=== PATIENT | female | born 1995 | race Caucasian/White ===

== ENCOUNTER 2019-05-20 21:30 | Emergency (ER) | payer MEDICAID ==
[~2019-05-20] VITALS: Ht 160 cm; Wt 149.7 kg
[2019-05-20 21:56] VITALS: Ht 160 cm; Wt 149.7 kg
[2019-05-20 22:53] LABS: APPEARANCE CLEAR (CLEAR); BILIRUBIN NEGATIVE (NEGATIVE); COLOR YELLOW (YELLOW); GLUCOSE NEGATIVE (NEGATIVE); KETONE NEGATIVE (NEGATIVE); NITRITE NEGATIVE (NEGATIVE); PROTEIN NEGATIVE (NEGATIVE); SPECIFIC GRAVITY 1.015 (1.005-1.020); UROBILINOGEN NORMAL (NORMAL)
[2019-05-20 22:55] LABS: BACTERIA FEW /hpf (NEGATIVE); EPITHELIAL CELLS 0-5 /hpf (0-5); RED CELLS - URINE 0-5 /hpf (0-5); WHITE CELLS - URINE 0-5 /hpf (NEGATIVE)
[2019-05-20 23:06] LABS: BASOPHILS 0.2 % (0-2); EOSINOPHILS 2.2 % (0-7); HEMATOCRIT 37.3 % (36.0-48.0); HEMOGLOBIN 11.8 g/dL (12-16); IMMATURE GRANULOCYTES 0.3 % (0-5); LYMPHOCYTES 27.3 % (15-50); MCH 27.4 pg (26.0-34.0); MCHC 31.6 g/dL (31.0-37.0); MCV 86.5 fL (80.0-100.0); MEAN PLATELET VOLUME 8.5 fL (7.4-10.4); MONOCYTES 4.2 % (2-11); NEUTROPHILS 65.8 % (40-80); PLATELET COUNT 347 10x3/uL (130-400); RBC 4.31 10x6/uL (4.00-5.40); RDW 14.1 % (11.5-14.5); WBC 11.3 10x3/uL (4.8-10.8)
[2019-05-20 23:20] LABS: CALC OSMOLALITY 273 mosm/kg (275-300); CALCIUM 8.4 mg/dL (8.5-10.1); CARBON DIOXIDE 25.5 mmol/L (21.0-32.0); CHLORIDE - SERUM 102 mmol/L (98-107); CREATININE - SERUM 0.6 mg/dL (0.6-1.3); GLUCOSE 88 mg/dL (74-106); HCG SERUM POSITIVE (NEGATIVE); POTASSIUM - SERUM 3.7 mmol/L (3.5-5.1); SODIUM 137 mmol/L (136-145); UREA NITROGEN 15 mg/dL (7-18); eGFR NON AFRICAN AMERICAN > 90 mL/min (90-120)
[2019-05-20 23:50] LABS: ALBUMIN 3.2 g/dL (3.4-5.0); ALKALINE PHOSPHATASE 37 U/L (46-116); ALT (SGPT) 26 U/L (10-68); BILIRUBIN - TOTAL 0.12 mg/dL (0.2-1.3); HCG - QUANTITATIVE (MATERNAL) 16297 mIU/mL; PROTEIN - SERUM 7.1 g/dL (6.4-8.2)
[2019-05-21 01:58] VITALS: BP 129/79
== END 2019-05-21 01:59 | disposition home or self-care (01) ==
LOC: D.ER 21:30
PROVIDERS: Emergency Medicine
DX: O20.9 Hemorrhage in early pregnancy, unspecified (principal); Z3A.08 8 weeks gestation of pregnancy

== ENCOUNTER 2019-08-05 09:46 | Inpatient (IN) | payer MEDICAID ==
[2019-08-05] VITALS (9 sets, daily range): BP systolic 98–125; BP diastolic 45–77
--- NOTE | ~2019-08-05 | OP ---
PATIENT NAME: MIAN MELENDEZ MEDICAL RECORD: [id number] LOCATION:[id number] ADMISSION DATE:08/05/19 SURGEON: SHERYL CORTEZ DO DATE OF OPERATION: 08/05/2019 PREOPERATIVE DIAGNOSIS: Retained placenta. POSTOPERATIVE DIAGNOSIS: Retained placenta. PRIMARY SURGEON: Sheryl Cortez DO ANESTHESIA: General ET tube. PROCEDURE: Suction dilation and curettage. FINDINGS: Normal appearing external genitalia, normal appearing vaginal vault. Cervix 3 cm dilated. SPECIMENS: Placenta. ESTIMATED BLOOD LOSS: 1500 cc. IV FLUIDS: 1200 IV fluid, plus Pitocin and 1 unit of PRBCs. URINE OUTPUT: 200 cc clear urine. COMPLICATIONS: After the placenta was removed, the patient noted to have uterine atony and hemorrhage, given 20 units of Pitocin and 1000 liters IV fluids, 0.25 mg Hemabate IM, and 0.2 mg Methergine IM. At that time, the bleeding improved and the uterus had good tone. One unit of PRBCs started in the OR due to hemorrhage. DESCRIPTION ON PROCEDURE: The risks, benefits, alternatives, and indications of the procedure were discussed with the patient. She was voiced understanding of the procedure and signed the consent. She was taken to the OR where general anesthesia was administered and found to be adequate. She was placed in the dorsal lithotomy position. She was prepped and draped in the normal sterile fashion. As the patient was already 3 cm dilated, manual removal of the placenta was performed. After the placenta was removed from the uterus, a gentle sharp curettage was performed; however, uterine atony was noted and the patient was given the aforementioned medications. A suction curette was introduced into the uterus and any other retained products of conception were removed with a suction curette. In a clockwise fashion, the suction curette was then removed. The patient still had mild uterine atony and so a bimanual compression of the uterus was performed. At that time, good uterine tone was noted. All instruments were removed from the vagina and hemostasis was noted to be adequate. All lap sponge and instruments were correct times 2. One unit of PRBCs was started in the OR due to uterine hemorrhage. The patient was awakened and taken to the recovery room in stable condition. TRANSINT:[id number] Voice Confirmation ID: [id number] DOCUMENT ID: [id number] OPERATIVE REPORT [id number] MIAN MELENDEZ REBECCA DO CC: [id number] DICTATION DATE: 08/09/19 1639 IT DATA ARCHITECT: 08/09/19 1716 DIS IN 08/06/19 [place] [id number] [place] [id number]
[2019-08-05 11:00] LABS: HEMATOCRIT 36.1 % (36.0-48.0); HEMOGLOBIN 11.3 g/dL (12-16); MCH 27.8 pg (26.0-34.0); MCHC 31.3 g/dL (31.0-37.0); MCV 88.7 fL (80.0-100.0); MEAN PLATELET VOLUME 8.7 fL (7.4-10.4); RBC 4.07 10x6/uL (4.00-5.40); RDW 14.2 % (11.5-14.5); WBC 17.3 10x3/uL (4.8-10.8)
--- NOTE | 2019-08-05 13:14 | NUR ---
TO ROOM 1273 VIA BED FROM RR. PT AWAKE AND VERBAL RESPONSES APPRO TO QUESTIONS. CO FEELING PRESSURE AND THAT FEELS LIKE SHE NEEDS TO VOID. SMALL BLOOD NOTED ON PAD UNDERNEATH PT- PADS ADJ AND REPLACED. ON BEDPAN- STATES FEELS LIKE NEEDS TO VOID AND HAVE BM BUT UNABLE TO DO SO. IV IN LT ACS CHANGED TO SALINE LOCK AND IV OF PITOCIN 20UNITS IN 1000CC NS CONNECTED TO PUMP AND INFUSING AT 125CC/HR. SCD'S ON AND CONNECTED TO PUMP.
--- NOTE | 2019-08-05 13:45 | NUR ---
REQUSTING SOMETHING TO DRINK BUT ALSO CO NAUSEA. ICE CHIPS GIVEN.
--- NOTE | 2019-08-05 13:45 | NUR ---
DISCUSSED WITH PT MOVING TO DIFFERENT ROOM OFF OF L&D UNIT, PT DECLINED AND REQUESTS TO STAY ON UNIT, STATES THAT SHE FEELS SHE IS RECEIVING GREAT CARE AND IS COMFORTABLE WITH STAFF ON UNIT CARING FOR HER.
--- NOTE | 2019-08-05 14:06 | NUR ---
TOLERATING ICE CHIPS. SITTING UP IN BED TALKING WITH VISITOR.
--- NOTE | 2019-08-05 15:12 | NUR ---
UP TO BATHROOM- VOIDED 300CC INTO CONTAINER. PERICARE DONE USING BETADINE AND WARM WATER. PAD PLACED.
--- NOTE | 2019-08-05 15:20 | NUR ---
DIPOSAL OF FACILITY VS HOME DISCUSSED WITH PT, REQUEST TO DISCUSS WITH SIGNIFICANT OTHER/FOB. RN INFORMED PT THAT ANY ADDITIONAL QUESTIONS OR INFO NEEDED COULD BE OBTAINED PER PT REQUEST AND THAT RN COULD ASSIST WITH MAKING CALLS TO HOMES PRN, VERBALIZES UNDERSTANDING AND DENIES QUESTIONS AT THIS TIME. PT REPORTS THAT FOB/SIGNIFICANT OTHER LEFT UNIT TO GO HOME TO GET BELONGINGS BUT IS PLANNING TO RETURN TO UNIT AT A LATER TIME. PT REQUESTS FETUS FOR BONDING TIME AT THIS TIME, FETUS BROUGHT TO ROOM PER REQUEST. ROOM TEMP DECREASED. BED IN LOW POSITION WITH SRUP X2. CALL LIGHT AND PHONE WITHIN PT REACH. WILL CONTINUE TO MONITOR.
--- NOTE | 2019-08-05 16:08 | NUR ---
pt returns infant. nicole and wanda given per request.
[2019-08-05 16:37] LABS: BASOPHILS 0.1 % (0-2); EOSINOPHILS 0.1 % (0-7); HEMATOCRIT 35.2 % (36.0-48.0); HEMOGLOBIN 11.1 g/dL (12-16); IMMATURE GRANULOCYTES 0.4 % (0-5); LYMPHOCYTES 5.8 % (15-50); MCH 27.8 pg (26.0-34.0); MCHC 31.5 g/dL (31.0-37.0); MCV 88.2 fL (80.0-100.0); MEAN PLATELET VOLUME 8.7 fL (7.4-10.4); NEUTROPHILS 92.6 % (40-80); PLATELET COUNT 293 10x3/uL (130-400); RBC 3.99 10x6/uL (4.00-5.40); RDW 14.5 % (11.5-14.5); WBC 17.1 10x3/uL (4.8-10.8)
--- NOTE | 2019-08-05 16:52 | NUR ---
TOLERATING CLEAR LIQUIDS WELL. DRANK 550CC ON TRAY. UP TO BATHROOM -VOIDED 500CC URINE. SCANT VAG BLEEDING NOTED. VICKEY CARE DONE. RETURNS TO BED. CO BEING HOT AND REQUESTING FAN.
--- NOTE | 2019-08-05 17:09 | NUR ---
H&H CALLED TO DR. CORTEZ FROM 1631.
--- NOTE | 2019-08-05 17:55 | NUR ---
VOIDED 200CC URINE- TOLERATING AMBULATION.
--- NOTE | 2019-08-05 18:58 | NUR ---
NEW POLICY ON STILLBIRTH REPORTING REVIEWED. COMMISSARY SUPERINTENDENT ANSWERING SERVICE CONTACTED AND WILL NOTIFY INJECTION MOLDING MACHINE OPERATOR COMMISSARY SUPERINTENDENT TO CALL UNIT.
--- NOTE | 2019-08-05 19:40 | NUR ---
RECEIVED SHIFT REPORT FROM JAKY FONTANEZ RN
--- NOTE | 2019-08-05 19:55 | NUR ---
ASSESSMENT PER FLOW SHEET, VS OBTAINED, SALINE LOCK IN LEFT AC INTACT WITH NO REDNESS OR EDEMA, IV IN RIGHT HAND INTACT WITH NO REDNESS OR EDEMA INFUSING VIA PUMP NS WITH PITOCIN AT 125 ML/HR, LITE BLEEDING NOTED WITH NO CLOTS, PT UP TO BR, VOIDED 200 MLS OF LIGHTLY BLOOD TINGED URINE BY SELF WITH NO DIFFICULTY, S/O ASSISTED PT IN BR, PT REPORTS FLATUS, PT REQUESTING REG DIET AND SHOWER, INFORMED PT THAT I WILL NOTIFY DR CORTEZ, PT REQUESTED AND SERVED L[place] SODA, BED IN LOW POSITION, SIDE RAILS X 2, CALL LIGHT IN REACH
--- NOTE | 2019-08-05 20:20 | NUR ---
PT SITTING UP IN BED, PT INST ON AND VERBALIZES UNDERSTANDING OF FILLING OUT DEMISE PAPERWORK, PT ALSO REQUESTS TO TALK TO DR CORTEZ, INFORMED PT THAT SHE IS SUPPOSE TO BE HERE SHORTLY AND I WILL HAVE HER COME IN AND TALK TO HER, PT INST TO USE CALL LIGHT FOR ANY ASSISTANCE, FOB AT BEDSIDE
--- NOTE | 2019-08-05 20:35 | NUR ---
NOTIFIED DR CORTEZ REGARDING D/C NS WITH PITOCIN, SALINE LOCK IV, REG DIET, SHOWER, AND THAT PT WOULD LIKE TO TALK TO HER WHEN SHE GETS HERE, ORDERS TO D/C NS WITH PITOCIN, SALINE LOCK IV, MAY HAVE REG DIET, AND CHANGE IM METHERGINE TO PO METHERGINE, AND THAT SHE WILL TALK TO PT WHEN SHE GETS HERE
--- NOTE | 2019-08-05 21:13 | NUR ---
PT SITTING UP IN BED, FOB AT BEDSIDE, SANDWICH TRAY SERVED WITH FRESH LEMON [place] SODA, ADM FLAGYL IVPB AND MORPHINE SIVP, DILUTED IN 5MLS OF NS, PER MD ORDERS, SEE EMAR, PT DENIES FURTHER NEEDS
--- NOTE | 2019-08-05 21:27 | NUR ---
DR CORTEZ ON UNIT, REPORT OF NO PO METHERGINE IN HOSPITAL, ORDERS TO D/C PO METHERGINE AND CHANGE TO METHERGINE 0.2MG IM [id number] FOR INCREASED BLEEDING, AND D/C MORPHINE IV, ORDERS READ BACK AND VERIFIED
--- NOTE | 2019-08-05 21:40 | NUR ---
THIS RN AND DR CORTEZ TO PT'S ROOM AT THIS TIME TO SPEAK WITH PT PER REQUEST OF PT. PT CURRENTLY SITTING UP IN BED EATING A SANDWICH. PT CURRENTLY APPARENTLY COPING WITH LOSS OF AT THIS TIME. DISCUSSING LOSS OF BLOOD WITH PT AND TONIA. THIS RN AND DR CORTEZ ASSURING PT THAT HER QUESTIONS CAN BE ANSWERED AND ASSISTANCE PROVIDED FOR NEEDS.
--- NOTE | 2019-08-05 22:45 | NUR ---
PT TRANSFERRED VIA AMB TO ROOM 1257 WITH ALL BELONGINGS, FOB AT SIDE, PT ORIENTED TO ROOM, BED IN LOW POSITION, SIDE RAILS X 2
--- NOTE | 2019-08-05 23:00 | NUR ---
PT UP TO BR WITH ASSISTANCE, VOIDED 400 MLS OF LIGHTLY BLOOD TINGED URINE BY SELF WITH NO DIFFICULTY, LITE BLEEDING NOTED WITH NO CLOTS ON VICKEY PAD, PT REQUESTED AND PROVIDED BABY WIPES, PT INST NOT TO FLUSH, PT VERBALIZES UNDERSTANDING, FOB IN BR TO ASSIST PT, PT INST TO USE CALL LIGHT FOR ANY ASSISTANCE
--- NOTE | 2019-08-05 23:35 | NUR ---
PT AWAKE, WATCHING TV, VS OBTAINED, PT RATES PAIN 2-3/10, PT INFORMED THAT I WILL ADM TORADOL AT 0145, PT VERBALIZES UNDERSTANDING, IV CONVERTED TO SALINE LOCK, FLUSHED WITH NO DIFFICULTY, SWAB CAPS IN PLACED, PT REQUESTED AND SERVED LEMON [place] SODA, BOTTLED WATER, AND ICE CHIPS, PT DENIES FURTHER NEEDS, FOB ASLEEP ON COUCH
--- NOTE | 2019-08-06 01:39 | NUR ---
PT AWAKE, SALINE LOCK FLUSHED, ADM TORADOL SIVP PER MD ORDERS, SALINE LOCK FLUSHED, PT DENIES NEEDS, FOB ASLEEP ON COUCH
--- NOTE | 2019-08-06 02:21 | NUR ---
REPORT TO BEATRIZ DUARTE RN
--- NOTE | 2019-08-06 03:00 | NUR ---
ROUNDS MADE FOR PAIN REASSESSMENT. PT CURRENTLY SLEEPING ON SOFA WITH SIG OTHER. RESP EVEN. SNORING AUDIBLE. PAIN ASSESSED. USING FACE SCALE. 0/10. BOTH LEFT UNDISTURBED AT THIS TIME.
--- NOTE | 2019-08-06 04:30 | NUR ---
THIS RN TO BEDSIDE FOR VITAL SIGNS, PAIN AND NEEDS ASSESSMENT. PT CURRENTLY SITTING UP IN BED WATCHING TV. DENIES PAIN. HAS REQUEST FOR SOMETHING TO EAT AND DRINK. WILL PROVIDE AFTER 3RD DOSE ANTIBIOTICS UP TO INFUSE. NS IV LINE CONNECTED TO RT HAND PIV. SITE WNL AND PATENT. MAIN LINE SET TO INFUSE AT 100ML/HR. FLAYGL 500MG UP TO INFUSE VIA IVPB. VITAL SIGNS STABLE. SEE FLOWSHEET. PT UP TO BR. SANDWICH TRAY, SPRITE AND 2 CUPS OF ICE SERVED PER PT REQUEST. NO FURTHER NEEDS VOICED AT THIS TIME. BED LOW, SIDE RAILS UP X 2. CALL LIGHT AT PT'S SIDE. SIG OTHER SLEEPING ON SOFA.
[2019-08-06 04:44] VITALS: BP 98/39
--- NOTE | 2019-08-06 06:00 | NUR ---
THIS RN TO PT'S ROOM TO DISCONNECT IV LINE. ANTIBIOTICS COMPETED AT THIS TIME. INFANT ID BANDS #[id number] PLACED ON MOM AND DAD. PT UP TO BR AT THIS TIME. NO NEEDS VOICED.
[2019-08-06 06:38] LABS: BASOPHILS 0.1 % (0-2); EOSINOPHILS 0.5 % (0-7); HEMATOCRIT 29.1 % (36.0-48.0); IMMATURE GRANULOCYTES 0.6 % (0-5); LYMPHOCYTES 15.6 % (15-50); MCH 27.4 pg (26.0-34.0); MCHC 30.9 g/dL (31.0-37.0); MCV 88.7 fL (80.0-100.0); MEAN PLATELET VOLUME 8.9 fL (7.4-10.4); MONOCYTES 4.7 % (2-11); NEUTROPHILS 78.5 % (40-80); PLATELET COUNT 292 10x3/uL (130-400); RBC 3.28 10x6/uL (4.00-5.40); RDW 14.7 % (11.5-14.5); WBC 15.5 10x3/uL (4.8-10.8)
--- NOTE | 2019-08-06 07:00 | NUR ---
THIS RN AND Deisy ARMENDARIZARL TO BEDSIDE FOR BEDSIDE SHIFT REPORT. PT SLEEPING ON SOFA W/SIG OTHER. BOTH LEFT UNDISTURBED. NO BEDSIDE SHIFT REPORT GIVEN.
--- NOTE | 2019-08-06 07:15 | NUR ---
TO BEDSIDE FOR REPORT. PT AND SIGNIFICANT OTHER RESTING WITH EYES CLOSED. PT RESP REGULAR AND UNLABORED, NO S/S OF DISTRESS NOTED. PT NOT DISTURBED TO ALLOW FOR REST. BED IN LOW POSITION WITH SRUP X2. CALL LIGHT AND PHONE WITHIN REACH. WILL CONTINUE TO MONITOR.
--- NOTE | 2019-08-06 07:30 | NUR ---
ATTEMPTED TO CONTACT PATHOLOGY REGARDING COLLECTING PATH, PER TECH MD WILL BE IN AT LATER TIME.
[2019-08-06 08:14] VITALS: BP 116/68
--- NOTE | 2019-08-06 08:14 | NUR ---
SHIFT ASSESSMENT COMPLETED PER FLOWSHEET. BOTH PIV'S REMOVED WITH TIPS INTACT AND BANDAID PLACED. POC DISCUSSED WITH PT AND SIGNIFICANT OTHER. PT REPORTS THAT SHE AND S/O HAVE OPTED TO HAVE [facility] CREMATED FOLLOWING NEEDED PATHOLOGIES. PT STATES THAT SHE WOULD LIKE TO D/C HOME TONI. REQUESTS RN CONTACT [facility]ARN[facility] NUNE[facility] AND [facility] REGARDING COST OF SERVICES FOR CREMATION. WILL FOLLOW UP WITH PT FOLLOWING PHONE CALLS TO HOMES.
--- NOTE | 2019-08-06 10:48 | NUR ---
ELICIA, IN PATH CONTACTED REGARDING TISSUE COLLECTION FROM [facility], EXT TO DR. FINE GIVEN. DR. 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 DR. CORTEZ NOTIFIED.
--- NOTE | 2019-08-06 11:20 | NUR ---
PT NOTIFIED THAT TISSUE WAS BEING COLLECTED AND THAT MARNIE NUNEZ AND [facility] PURCELL HAD BEEN CONTACTED AND BOTH REPORT THAT CREMATION SERVICES WERE FREE OF CHARGE. [facility] [place] [facility], CALL MADE AND PT NOTIFIED THAT THIS HOME CHARGES FOR URN BUT CREMATION WILL BE NO CHARGE. PER PT [facility]. PT REQUEST TO SEE [facility] FOR BONDING WHEN BACK FROM PATH LAB.
--- NOTE | 2019-08-06 11:40 | NUR ---
THIS RN TO ROOM PER PT REQUEST FOR DRINK AND SNACK. SNACKS, ICE WATER, AND SPRITE PROVIDED. RIGHT HAND PIV REMOVED NO LONGER INDICATED. PRESSURE HELD AND BANDAID APPLIED. PT DENIES FURTHER NEEDS AT THIS TIME. SRUx2, CL IN REACH.
--- NOTE | 2019-08-06 12:10 | NUR ---
FETUS BACK TO UNIT FROM PATH AND TAKEN TO PT FOR BONDING. PT NOTIFIED THAT ONCE BONDING WAS COMPLETED RN WOULD CONTACT [facility] FOR REMOVAL OF REMAINS. RELEASE TO HOME SIGNED AT THIS TIME.
--- NOTE | 2019-08-06 12:50 | NUR ---
FETU RETURNED TO SPECIMEN REFRIGERATOR PER REQUEST OF PARENTS.
--- NOTE | 2019-08-06 13:41 | NUR ---
DISCHARGE INSTRUCTIONS REVIEWED WITH PT AND SIGNIFICANT OTHER, COPIES OF DISCHARGE INSTRUCTIONS PROVIDED. REINFORCED TEACHING ON PP DEPRESSION AND BREAST CARE, PT VERBALIZES UNDERSTANDING. OFF UNIT IN W/C AT THIS TIME.
--- NOTE | 2019-08-06 15:33 | NUR ---
TESSA WITH [facility] CONTACTED, NOTIFIED OF NEED FOR REMOVAL OF REMAINS, REPORTS THAT HE WILL BE EN ROUTE TO UNIT.
[2019-08-07 06:08] LABS: RAPID PLASMA REAGIN Non Reactive (Non Reactive)
== END 2019-08-06 13:41 | disposition home or self-care (01) | DRG 770 ==
LOC: D.LD 09:46
PROVIDERS: ADMIT Student in an Organized Health Care Education/Training Program; ATTEND Student in an Organized Health Care Education/Training Program
PROC: 10D17ZZ Extraction of Products of Conception, Retained, Via Natural or Artificial Opening (ICD-10-PCS; principal; 2019-08-05 11:45)
DX: O03.4 Incomplete spontaneous abortion without complication (principal); Z3A.18 18 weeks gestation of pregnancy; O99.332 Smoking (tobacco) complicating pregnancy, second trimester